=== PATIENT | male | born 1980 | race African-American/Black ===

== ENCOUNTER 2016-11-09 07:33 | Emergency (ER) | payer SELFPAY ==
[2016-11-09] MEDS ORDERED: KETOROLAC TROMETHAMINE 60 MG/2 ML SDV IM ONE (08:09)
--- NOTE | 2016-11-09 08:27 | ER Document Report ---
ED Neck/Back Problem - General Mode of Arrival: Ambulatory Information source: Patient TRAVEL OUTSIDE OF THE [place].S. IN LAST 30 DAYS: No - HPI Patient complains to provider of: Pain, Lower back Onset: Other - Friday Where: Home, Outdoors Onset: Gradual Timing: Worse Quality of pain: Achy, Cramping Severity: Moderate Pain Level: 4 Context: Bending, Lifting, Turning Recent injury: No Associated symptoms: Lower back pain, Other - Pain flank right. denies: Constipation, Incontinence, Motor loss, Numbness/tingling, Radiation to arm, Radiation to chest, Radiation to leg, Sensory loss, Unable to urinate, Upper back pain Exacerbated by: Movement of trunk Relieved by: Nothing Similar symptoms previously: Yes Recently seen / treated by doctor: No - General Chief Complaint: Back Injury Stated Complaint: BACK INJURY Time Seen by Provider: 11/09/16 07:47 Notes: -year-old male presents to ED for right low back and flank pain since Friday. He states he was doing yard work lifting and bending when the pain started. He states the pain is gotten progressively worse throughout the week. He states yesterday at work the pain was so bad that he was having a hard time completing his job. Denies any vertebral tenderness denies any loss of control of bowel bladder. Denies any incontinence of urine or stool. OKSANA GARZON) - Related Data Allergies/Adverse Reactions: No Known Allergies Allergy (Verified 11/09/16 07:36) Past Medical History - General Information source: Patient - Social History Smoking Status: Former Smoker Cigarette use (# per day): No Chew tobacco use (# tins/day): No Smoking Education Provided: No Frequency of alcohol use: Occasional Drug Abuse: None Occupation: dietary tech Lives with: Family Family History: Arthritis, COPD, CVA, DM, Hyperlipidemia, Hypertension, Malignancy, Thyroid Disfunction Patient has suicidal ideation: No Patient has homicidal ideation: No Pulmonary Medical History: Reports: None EENT Medical History: Reports: None Neurological Medical History: Reports: Other - Brain tumor benign Endocrine Medical History: Reports: None Renal/ Medical History: Reports: None Malignancy Medical History: Reports None GI Medical History: Reports: None Musculoskeltal Medical History: Reports Hx Musculoskeletal Trauma Skin Medical History: Reports Hx Cellulitis Psychiatric Medical History: Reports: None Traumatic Medical History: Reports: Hx Traumatic Brain Injury Past Surgical History: Reports: Hx Neurologic Surgery - brain tumor - Immunizations Immunizations up to date: Yes Hx Diphtheria, Pertussis, Tetanus Vaccination: Yes Review of Systems - Review of Systems Constitutional: No symptoms reported EENT: No symptoms reported Cardiovascular: No symptoms reported Respiratory: No symptoms reported Gastrointestinal: No symptoms reported Genitourinary: No symptoms reported Male Genitourinary: No symptoms reported Musculoskeletal: Back pain, Muscle pain, Muscle stiffness Skin: No symptoms reported Hematologic/Lymphatic: No symptoms reported Neurological/Psychological: No symptoms reported -: Yes All other systems reviewed and negative Physical Exam - Vital signs Interpretation: Normal - General General appearance: Appears well, Alert - HEENT Head: Normocephalic, Atraumatic Eyes: Normal Pupils: PERRL - Respiratory Respiratory status: No respiratory distress Chest status: Nontender Breath sounds: Normal Chest palpation: Normal - Cardiovascular Rhythm: Regular Heart sounds: Normal auscultation Murmur: No - Abdominal Inspection: Normal Distension: No distension Bowel sounds: Normal Tenderness: Nontender Organomegaly: No organomegaly - Back Back: Normal, Tender - Right flank and lower back pain, CVA tenderness. No: Deformity/step-off, Vertebra tenderness, Scars, Scoliosis, Wounds - Extremities General upper extremity: Normal inspection, Nontender, Normal color, Normal ROM , Normal temperature General lower extremity: Normal inspection, Nontender, Normal color, Normal ROM , Normal temperature, Normal weight bearing. No: Valentina's sign - Neurological Neuro grossly intact: Yes Cognition: Normal Orientation: AAOx4 [place] Coma Scale Eye Opening: Spontaneous [place] Coma Scale Verbal: Oriented Maria M Coma Scale Motor: Obeys Commands Maria M Coma Scale Total: 15 Speech: Normal Motor strength normal: LUE, RUE, LLE, RLE Sensory: Normal - Psychological Associated symptoms: Normal affect, Normal mood - Skin Skin Temperature: Warm Skin Moisture: Dry Skin Color: Normal Course - Re-evaluation Re-evalutation: 11/09/16 09:44 Treated with Toradol in the emergency room and discharged home with prescriptions for ibuprofen and Flexeril. Patient had no pulsatile masses in the abdomen no loss of sensation no loss of control of bowel bladder no signs of cauda equina. Patient discharged home with instructions on use of ice and heat and back exercises. Patient to follow-up with his primary doctor. ( OKSANA HAYNES) - Vital Signs Vital signs: Temp Pulse Resp BP Pulse Ox 98.4 F 80 16 142/92 H 98 11/09/16 09:13 11/09/16 09:13 11/09/16 09:13 11/09/16 09:13 11/09/16 09:13 Discharge - Discharge Clinical Impression: Low back pain Qualifiers: Chronicity: acute Back pain laterality: right Sciatica presence: without sciatica Qualified Code(s): M54.5 - Low back pain Condition: Stable Disposition: HOME, SELF-CARE Additional Instructions: LOW BACK PAIN: Three out of every four people will have an episode of disabling back pain during their lifetime. Most commonly the pain is due to straining of the muscles and ligaments in the low back. Usual treatment includes: (1) Rest on a firm surface. Avoid lying on your stomach. (2) Ice pack the painful area. After a few days, gentle heat may be used intermittently to relax the area, or ice packs can be continued. (3) Medication may be needed -- muscle relaxers and antiinflammatory medicines are commonly used. (4) As the back improves, exercises are prescribed to strengthen the back and abdominal muscles. Your doctor will advise you on the proper care for your back at each stage in your recovery. You may be better in a few days -- or healing may take several weeks. If new symptoms of a "herniated disc" (radiation of pain, numbness, or tingling down the back of the leg or weakness in the leg) occur, you should be re-examined. Further testing may be necessary. MUSCLE RELAXERS: Muscle relaxing medications are usually prescribed for acute muscle spasm or injury to the neck and back. They are often combined with antiinflammatory pain medication for increased relief. You may stop the muscle relaxer when the pain and stiffness have improved. Start the medication again if spasms recur. Muscle relaxers may cause drowsiness, especially with the first dose. Do not operate machinery or drive while under the effects of the medication. Most muscle relaxers last up to 24 hours. Do not combine the medication with alcohol. ICE PACKS: Apply ice packs frequently against the painful area. Many different schedules are recommended, such as "20 minutes on, 20 minutes off" or "one hour ice, two hours rest." If you need to work, you may need to go longer between ice treatments. You should plan to have the area ice packed AT LEAST one fourth of the time. The ice should be applied over the wrap, tape, or splint, or over a layer of cloth -- not directly against the skin. Some ice bags have a built-in cloth and can be put directly on the skin. WARM PACKS: After approximately two days, apply gentle heat (such as a heating pad or hot water bottle) for about 20 to 30 minutes about every two hours -- at least four times daily. Warmth and elevation will help you make a more rapid recovery , and will ease the pain considerably. Do not use HOT heat, and never apply heat for longer than 30 minutes. The continuous heat can invisibly damage skin and muscles -- even when no burn is seen on the surface. Damaged muscles can make you MORE sore. Toradol Injection You have been given an injection of ketorolac tromethamine (Toradol). This is an excellent, safe drug for pain control. It also has potent antiinflammatory action. You should have significant pain relief within about one hour. Toradol is not addicting and is non-sedating. It does not interfere with driving or work. Call or return if you develop itching, hives, shortness of breath, or rash. FOLLOW-UP CARE: If you have been referred to a physician for follow-up care, call the physician s office for an appointment as you were instructed or within the next two days. If you experience worsening or a significant change in your symptoms, notify the physician immediately or return to the Emergency Department at any time for re-evaluation. Prescriptions: Ibuprofen 800 mg PO Q8HP PRN #20 tablet PRN Reason: Cyclobenzaprine HCl [Flexeril 10 mg Tablet] 10 mg PO TIDP PRN #15 tab PRN Reason: Forms: Return to Work
[2016-11-09 09:03] LABS: APPEARANCE,URINE CLEAR; BILIRUBIN,URINE NEGATIVE (NEGATIVE); GLUCOSE, URINE NEGATIVE (NEGATIVE); KETONES,URINE NEGATIVE (NEGATIVE); LEUKOCYTE ESTERASE,URINE NEGATIVE (NEGATIVE); NITRITE,URINE NEGATIVE (NEGATIVE); PROTEIN,URINE NEGATIVE (NEGATIVE); URINE SPECIFIC GRAVITY 1.019; UROBILINOGEN,URINE NEGATIVE mg/dL (<2.0)
[2016-11-09 09:05] LABS: WBC,URINE RARE /HPF
[2016-11-09 09:06] LABS: BACTERIA,URINE TRACE /HPF
[2016-11-09 09:17] VITALS: BP 142/92
== END 2016-11-09 09:13 | disposition home or self-care (01) ==
LOC: ER 07:33
DX: S39.92XA Unspecified injury of lower back, initial encounter (principal); M54.5 Low back pain; R10.9 Unspecified abdominal pain; Z87.891 Personal history of nicotine dependence; X58.XXXA Exposure to other specified factors, initial encounter
CPT/HCPCS: 99283; 96372; 81001; J1885

== ENCOUNTER 2019-12-14 09:44 | Emergency (ER) | payer SELFPAY ==
--- NOTE | 2019-12-14 11:39 | ER Document Report ---
ED Medical Screen (RME) - General Chief Complaint: Shortness Of Breath Stated Complaint: RASH/SHORTNESS OF BREATH Notes: Patient is a 39-year-old male who presents to the emergency department with 2 complaints. Patient states that he started out with a rash about a week and a half ago. States that he used sgeh-oom-zviuvpq remedies such as oatmeal bath and creams to help with the rash. States that it is a little bit better, but it still itches. Patient states that he has poison celeste in the backyard, but does not do yard work. He states that he does not know if he came in contact with it. 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 Patient does not have any recorded medical history, but he has not been diagnosed with anything. When asked if the patient wanted to be tested for COVID, he states that he does not know quite yet. He will make his decision towards the end of his visit here in the emergency department. Exam: Erythema noted to abdomen. I have greeted and performed a rapid initial assessment of this patient. A comprehensive ED assessment and evaluation of the patient, analysis of test results and completion of medical decision making process will be conducted by an additional ED providers. TRAVEL OUTSIDE OF THE [place] IN LAST 30 DAYS: No - Related Data Allergies/Adverse Reactions: No Known Allergies Allergy (Verified 11/09/16 07:36) Past Medical History - Social History Chew tobacco use (# tins/day): No Frequency of alcohol use: Occasional Drug Abuse: Marijuana Renal/ Medical History: Denies: Hx Peritoneal Dialysis Musculoskeltal Medical History: Reports Hx Musculoskeletal Trauma Skin Medical History: Reports Hx Cellulitis Traumatic Medical History: Reports: Hx Traumatic Brain Injury Past Surgical History: Reports: Hx Neurologic Surgery - brain tumor - Immunizations Immunizations up to date: Yes Hx Diphtheria, Pertussis, Tetanus Vaccination: Yes Physical Exam - Vital signs Vitals: Temp Pulse Resp BP Pulse Ox 99.3 F 102 H 20 186/98 H 97 12/14/19 10:04 12/14/19 10:12/14/19 10:12/14/19 10:12/14/19 10:04 Course - Vital Signs Vital signs: Temp Pulse Resp BP Pulse Ox 99.3 F 102 H 20 186/98 H 97 12/14/19 11:25 12/14/19 10:04 12/14/19 10:04 12/14/19 10:04 12/14/19 10:04
[2019-12-14 12:07] LABS: ABSOLUTE EOSINOPHILS # (AUTO) 0.1 10^3/uL (0.0-0.6); ABSOLUTE LYMPHOCYTES (AUTO) 1.2 10^3/uL (0.5-4.7); ABSOLUTE MONOCYTES (AUTO) 0.6 10^3/uL (0.1-1.4); BASOPHILS % (AUTO) 0.8 % (0-2); EOSINOPHILS % (AUTO) 2.6 % (0-6); HEMATOCRIT 44.6 % (37.9-51.0); LYMPHOCYTES % (AUTO) 24.7 % (13-45); MEAN CORPUSCULAR HEMOGLOBIN 30.7 pg (27.0-33.4); MEAN CORPUSCULAR HGB CONC 33.7 g/dL (32.0-36.0); MEAN CORPUSCULAR VOLUME 91 fl (80-97); MONOCYTES % (AUTO) 11.3 % (3-13); PLATELET COUNT 149 10^3/uL (150-450); RED BLOOD COUNT 4.89 10^6/uL (4.35-5.55); SEGMENTED NEUTROPHILS % (AUTO) 60.6 % (42-78); TOTAL CELLS COUNTED % (AUTO) 100 %
[2019-12-14 12:24] LABS: ALBUMIN 4.7 g/dL (3.5-5.0); ALKALINE PHOSPHATASE 101 U/L (38-126); ANION GAP 9 (5-19); ASPARTATE AMINO TRANSFERASE 123 U/L (17-59); BILIRUBIN,DIRECT 0.1 mg/dL (0.0-0.4); BILIRUBIN,TOTAL 1.7 mg/dL (0.2-1.3); BLOOD UREA NITROGEN 9 mg/dL (7-20); CALCIUM 9.4 mg/dL (8.4-10.2); CARBON DIOXIDE 28 mmol/L (22-30); CHLORIDE 103 mmol/L (98-107); GLUCOSE 117 mg/dL (75-110); POTASSIUM 4.1 mmol/L (3.6-5.0); TOTAL PROTEIN 8.3 g/dL (6.3-8.2)
--- NOTE | 2019-12-14 12:28 | RADIOLOGY REPORT (SQ) ---
EXAM DESCRIPTION: CHEST SINGLE VIEW IMAGES COMPLETED DATE/TIME: 12/14/2019 12:07 pm REASON FOR STUDY: shortness of breath COMPARISON: None. EXAM PARAMETERS: NUMBER OF VIEWS: One view. TECHNIQUE: Single frontal radiographic view of the chest acquired. RADIATION DOSE: NA LIMITATIONS: None. FINDINGS: LUNGS AND PLEURA: No opacities, masses or pneumothorax. No pleural effusion. MEDIASTINUM AND HILAR STRUCTURES: No masses. Contour normal. HEART AND VASCULAR STRUCTURES: Heart normal in size. Normal vasculature. BONES: No acute findings. HARDWARE: None in the chest. OTHER: No other significant finding. IMPRESSION: NO ACUTE RADIOGRAPHIC FINDING IN THE CHEST. TECHNICAL DOCUMENTATION: JOB ID: [id number] 2010 [employer]- All Rights Reserved Reading location - IP/workstation name: [email or web address]
--- NOTE | 2019-12-14 13:33 | ER Document Report ---
Entered by RUFINA POTTER SCRIBE 12/14/19 1202 Acting as scribe for:ДМИТРИЙ TEJADA MD ED Respiratory Problem - General Chief Complaint: Shortness Of Breath Stated Complaint: RASH/SHORTNESS OF BREATH Time Seen by Provider: 12/14/19 11:44 Information source: Patient Notes: This 39-year-old male patient presents to the emergency department today with complaints of a two-week history of a rash across his trunk and bilateral upper extremities. Patient states he is a poison celeste in the past and it looks similar to this. Patient did not come into contact with poison celeste to his knowledge. Patient also mentions that he has had shortness of breath around the last 2 weeks as well and he noticed that it only seems to happen when he stands up . Patient states he has been taking Benadryl for the rash and he thinks it might be dehydrating him. TRAVEL OUTSIDE OF THE [place] IN LAST 30 DAYS: No - Related Data Allergies/Adverse Reactions: No Known Allergies Allergy (Verified 11/09/16 07:36) Past Medical History - General Information source: Patient - Social History Smoking Status: Current Every Day Smoker Cigarette use (# per day): Yes Chew tobacco use (# tins/day): No Smoking Education Provided: No Frequency of alcohol use: Social Drug Abuse: Marijuana Lives with: Family Family History: Arthritis, COPD, CVA, DM, Hyperlipidemia, Hypertension, Malignancy, Thyroid Disfunction Patient has homicidal ideation: No Musculoskeletal Medical History: Reports Hx Musculoskeletal Trauma Skin Medical History: Reports Hx Cellulitis Traumatic Medical History: Reports: Hx Traumatic Brain Injury Past Surgical History: Reports: Hx Neurologic Surgery - brain tumor - Immunizations Immunizations up to date: Yes Hx Diphtheria, Pertussis, Tetanus Vaccination: Yes Review of Systems - Review of Systems Constitutional: No symptoms reported EENT: No symptoms reported Cardiovascular: No symptoms reported Respiratory: See HPI, Short of breath Gastrointestinal: No symptoms reported Genitourinary: No symptoms reported Male Genitourinary: No symptoms reported Musculoskeletal: No symptoms reported Skin: See HPI, Rash Hematologic/Lymphatic: No symptoms reported Neurological/Psychological: No symptoms reported -: Yes All other systems reviewed and negative Physical Exam - Vital signs Vitals: Temp Pulse Resp BP Pulse Ox 99.3 F 102 H 20 186/98 H 97 12/14/19 10:04 12/14/19 10:04 12/14/19 10:04 12/14/19 10:04 12/14/19 10:04 - Notes Notes: Physical Exam: General: Alert, appears well. HEENT: Normocephalic. Atraumatic. PERRL. Extraocular movements intact. Oropharynx clear. Neck: Supple. Non-tender. Respiratory: No respiratory distress. Clear and equal breath sounds bilaterally. Cardiovascular: Regular rate and rhythm. Abdominal: Normal Inspection. Non-tender. No distension. Normal Bowel Sounds. Back: No gross abnormalities. Extremities: Moves all four extremities. Upper extremities: Normal inspection. Normal ROM. Lower extremities: Normal inspection. No edema. Normal ROM. Neurological: Normal cognition. AAOx4. Normal speech. Psychological: Normal affect. Normal Mood. Skin: Rash across abdomen and bilateral upper extremities that is mostly very dr y and scaly, there are a few places where vesicles have not yet crusted over consistent with healing poison celeste. Course - Vital Signs Vital signs: Temp Pulse Resp BP Pulse Ox 99 F 92 18 170/88 H 99 12/14/19 13:46 12/14/19 13:46 12/14/19 13:46 12/14/19 13:46 12/14/19 13:46 - Laboratory Result Diagrams: 12/14/19 11:50 12/14/19 11:50 Laboratory results interpreted by me: 12/14/19 12/14/19 11:50 11:50 Plt Count 149 L Glucose 117 H Total Bilirubin 1.7 H AST 123 H ALT 95 H Total Protein 8.3 H - Diagnostic Test Radiology reviewed: Image reviewed, Reports reviewed - Chest x-ray is normal. Discharge - Discharge Clinical Impression: Shortness of breath, Dermatitis, Encounter for laboratory testing for COVID-19 virus High blood pressure Qualifiers: Hypertension type: unspecified Qualified Code(s): I10 - Essential (primary) hypertension Condition: Stable Disposition: HOME, SELF-CARE Instructions: COVID-19 Guidance for Persons Under Investigation Additional Instructions: Dyspnea, Nonspecific You were evaluated for shortness of breath, or dyspnea. Dyspnea has many causes, and some are more serious than others. Sometimes it's impossible to diagnose the cause of dyspnea with the tests that are available on an emergency basis. Based on our evaluation today, you do not need hospitalization now. We found no evidence of pneumonia, collapsed lung, blood clots in the lung, tumors, or heart failure. Causes of non-specific dyspnea can include asthma or bronchospasm, hyperventilation, emotional distress, heart disease, emphysema, fibrosis of the lung, and stiffness of the chest wall. In healthy individuals with a single episode, it's sometimes reasonable to do nothing but wait to see if the problem occurs again. Additional tests used to evaluate dyspnea can include cardiac stress testing, echocardiography, pulmonary function testing, CAT scan of the chest, bronchoscopy or pulmonary biopsy. Return if shortness of breath persists or worsens, or if you develop chest pain, fever, cough, confusion, or fainting. The skin rash you have is most likely due to poison celeste and has almost cleared up. Try taking jczt-wss-[id number] Pepcid 20mg every 4-6 hours for itching. It would not make you drowsy like Benadryl. You may also try Benadryl cream on the rash when it is itching. Mpdh-qve-yjhnrfc hydrocortisone cream on the rash may also help. There was no clear explanation for your feelings of shortness of breath. Your chest x-ray was normal. Your blood pressure was high today. You should check your pressure at least twice a day for the next several days, and if it continues to run high then you will need to be treated. You were tested for the COVID-19 virus today. You should self isolate until you get the test results sometime in the next 3 to 4 days. Follow-up with a local primary care provider if your rash does not improve, your blood pressure does not come down to normal, or if your shortness of breath gets worse. RETURN TO THE EMERGENCY ROOM IF ANY NEW OR WORSENING SYMPTOMS. I personally performed the services described in the documentation, reviewed and edited the documentation which was dictated to the scribe in my presence, and it accurately records my words and actions.
[2019-12-14 13:48] VITALS: BP 170/88
== END 2019-12-14 13:40 | disposition home or self-care (01) ==
LOC: ER 09:44
DX: Z20.828 Contact with and (suspected) exposure to other viral communicable diseases (principal); L30.9 Dermatitis, unspecified; I10 Essential (primary) hypertension; R06.02 Shortness of breath; R21 Rash and other nonspecific skin eruption; Z79.899 Other long term (current) drug therapy; F17.210 Nicotine dependence, cigarettes, uncomplicated
CPT/HCPCS: 99285; 36415; 85025; 87635; 80053; 83880; 71045; C9803

== ENCOUNTER 2020-03-31 18:24 | Emergency (ER) | payer MEDICAID ==
--- NOTE | 2020-03-31 19:48 | ER Document Report ---
ED Medical Screen (RME) - General Chief Complaint: Palpitations Stated Complaint: ABNORMAL LABS Time Seen by Provider: 03/31/20 19:35 Primary Care Provider: TINA BAR [Primary Care Provider] - Follow up as needed Mode of Arrival: Wheelchair Information source: Patient Notes: Male presented to ED for shortness of breath and palpitations. He has been seen and [facility] since January for possible autoimmune disease he is also been short of breath fatigue since January with a rash since November. Today he went to [facility] and he was more short of breath. They did a EKG and labs D-dimer was [address] [facility] called her and got emergently to the emergency room. His apical pulse was 128 in triage. I did call the charge nurse and asked her to get him a room. I have moved him to room 11. I have ordered a CTA blood work chest x-ray and EKG. I have given report to the charge nurse to please get him seen immediately. I have greeted and performed a rapid initial assessment of this patient. A comprehensive ED assessment and evaluation of the patient, analysis of test results and completion of medical decision making process will be conducted by an additional ED providers. TRAVEL OUTSIDE OF THE [place] IN LAST 30 DAYS: No - Related Data Allergies/Adverse Reactions: No Known Allergies Allergy (Verified 11/09/16 07:36) Past Medical History Renal/ Medical History: Denies: Hx Peritoneal Dialysis Musculoskeltal Medical History: Reports Hx Musculoskeletal Trauma Skin Medical History: Reports Hx Cellulitis Traumatic Medical History: Reports: Hx Traumatic Brain Injury Past Surgical History: Reports: Hx Neurologic Surgery - brain tumor - Immunizations Immunizations up to date: Yes Hx Diphtheria, Pertussis, Tetanus Vaccination: Yes Physical Exam - Vital signs Vitals: Temp Pulse Resp BP Pulse Ox 98.6 F 130 H 16 136/81 H 99 03/31/20 18:54 03/31/20 18:54 03/31/20 18:54 03/31/20 18:54 03/31/20 18:54 Course - Vital Signs Vital signs: Temp Pulse Resp BP Pulse Ox 98.6 F 130 H 16 136/81 H 99 03/31/20 18:54 03/31/20 18:54 03/31/20 18:54 03/31/20 18:54 03/31/20 18:54 Doctor's Discharge - Discharge Referrals: TINA BAR [Primary Care Provider] - Follow up as needed
--- NOTE | 2020-03-31 20:34 | RADIOLOGY REPORT (SQ) ---
EXAM DESCRIPTION: XR CHEST 1 VIEW COMPLETED DATE/TME: 03/31/2020 20:00 CLINICAL HISTORY: 39 years, Male, States D-dimer was 1160 at [facility] COMPARISON: Chest x-ray 12/14/2019 TECHNIQUE: Upright portable chest x-ray FINDINGS: Cardiomediastinal silhouette is not enlarged. Mild hyperinflation. No acute lung pleural bone abnormalities. IMPRESSION: No acute findings in the chest.
[2020-03-31 20:46] LABS: ABSOLUTE LYMPHOCYTES (AUTO) 0.7 10^3/uL (0.5-4.7); ABSOLUTE MONOCYTES (AUTO) 0.4 10^3/uL (0.1-1.4); ABSOLUTE NEUT (AUTO) 5.8 10^3/uL (1.7-8.2); BASOPHILS % (AUTO) 0.6 % (0-2); EOSINOPHILS % (AUTO) 0.1 % (0-6); HEMATOCRIT 38.7 % (37.9-51.0); HEMOGLOBIN 12.9 g/dL (13.5-17.0); LYMPHOCYTES % (AUTO) 9.5 % (13-45); MEAN CORPUSCULAR HEMOGLOBIN 30.2 pg (27.0-33.4); MEAN CORPUSCULAR HGB CONC 33.2 g/dL (32.0-36.0); MEAN CORPUSCULAR VOLUME 91 fl (80-97); MONOCYTES % (AUTO) 6.1 % (3-13); PLATELET COUNT 194 10^3/uL (150-450); RED BLOOD COUNT 4.26 10^6/uL (4.35-5.55); RED CELL DISTRIBUTION WIDTH 15.4 % (11.5-14.0); SEGMENTED NEUTROPHILS % (AUTO) 83.7 % (42-78); TOTAL CELLS COUNTED % (AUTO) 100 %
[2020-03-31 21:00] LABS: INTERNATIONAL RATION (INR) 0.87
[2020-03-31 21:01] LABS: ALBUMIN 3.6 g/dL (3.5-5.0); ALKALINE PHOSPHATASE 78 U/L (38-126); ANION GAP 11 (5-19); ASPARTATE AMINO TRANSFERASE 78 U/L (17-59); BILIRUBIN,DIRECT 0.2 mg/dL (0.0-0.4); BILIRUBIN,TOTAL 0.9 mg/dL (0.2-1.3); BLOOD UREA NITROGEN 15 mg/dL (7-20); CALCIUM 9.3 mg/dL (8.4-10.2); CARBON DIOXIDE 24 mmol/L (22-30); CHLORIDE 101 mmol/L (98-107); CREATINE KINASE 149 U/L (55-170); GLUCOSE 212 mg/dL (75-110); POTASSIUM 4.6 mmol/L (3.6-5.0); TOTAL PROTEIN 6.9 g/dL (6.3-8.2)
--- NOTE | 2020-03-31 21:16 | RADIOLOGY REPORT (SQ) ---
EXAM DESCRIPTION: CTA CHEST CLINICAL HISTORY: 39 years Male; States D-dimer was 1160 at [facility] TECHNIQUE: CT angiogram of the chest using intravenous contrast.. MIP reconstructions were performed. All CT scans at this facility use dose modulation, iterative reconstruction, and/or weight based dosing when appropriate to reduce radiation dose to as low as reasonably achievable. COMPARISON: None. FINDINGS: Chest: Vascular: Exam is nondiagnostic for pulmonary artery embolization related to poor contrast opacification of the pulmonary arteries. The main, right and left pulmonary arteries are grossly normal. Distal to this the vessels are completely unopacified. Thoracic aorta is of normal caliber. No aneurysm. No dissection. Lungs: Lungs are clear. No pneumonia or edema. No pneumothorax or pleural effusion. No pulmonary nodules or masses. Mediastinum: Heart size is within normal limits. No pericardial abnormality. The airway is patent. No mediastinal or hilar lymphadenopathy. Esophagus appears normal. Bones and soft tissues: Osseous structures are unremarkable. There appears to be lymphadenopathy in the axilla and there may be vascular clips or calcifications in the left axilla. This is incompletely imaged. Upper Abdomen: Hepatomegaly with fatty infiltration of the liver. There are calcifications or clips in the region of the gallbladder fossa. IMPRESSION: 1. Nondiagnostic exam for pulmonary artery embolization secondary to lack of contrast enhancement of the pulmonary arteries. 2. Possible axillary lymphadenopathy. This is incompletely imaged. 3. Fatty infiltration of the liver. 4. No acute process in the chest.
[2020-03-31] MEDS ORDERED: NORMAL SALINE 1000 ML 1,000 ML IV ONE (21:19)
--- NOTE | 2020-03-31 21:21 | ER Document Report ---
ED General - General Chief Complaint: Palpitations Stated Complaint: ABNORMAL LABS Time Seen by Provider: 03/31/20 19:35 Primary Care Provider: TINA BAR [NO LOCAL MD] - Follow up as needed Mode of Arrival: Wheelchair TRAVEL OUTSIDE OF THE [place] IN LAST 30 DAYS: No - HPI Context: This is a 39-year-old male who presents to the emergency department complaining of shortness of breath and rapid heart rate. Patient has been having trouble with these symptoms for over 3 months and has been in the process of being evaluated for a possible autoimmune disease at [facility] for approximately 1 month. Patient was seen yesterday at [facility] and had lab work done. By the time they got back into [place] they received a phone call from their physician at [facility] stating that his D-dimer was 9160 and was told to go immediately to the emergency room to be evaluated for a pulmonary embolus. Patient denies history of COVID-19 infection, known exposure to persons positive for COVID-19 infection or persons under investigation for COVID-19 infection. Patient denies loss of sense of smell or taste. Patient states his symptoms are worse with activity and rest and only slightly alleviates his symptoms. Patient is a non-smoker. Associated symptoms: Other - See HPI Exacerbated by: Other - See HPI Relieved by: Other - See HPI Similar symptoms previously: No Recently seen / treated by doctor: Yes - See HPI - Related Data Allergies/Adverse Reactions: No Known Allergies Allergy (Verified 11/09/16 07:36) Past Medical History - General Information source: Patient - Social History Smoking Status: Former Smoker Frequency of alcohol use: None Drug Abuse: None Family History: Arthritis, COPD, CVA, DM, Hyperlipidemia, Hypertension, Malignancy, Thyroid Disfunction Patient has homicidal ideation: No Renal/ Medical History: Denies: Hx Peritoneal Dialysis Musculoskeletal Medical History: Reports Hx Musculoskeletal Trauma Skin Medical History: Reports Hx Cellulitis Traumatic Medical History: Reports: Hx Traumatic Brain Injury Past Surgical History: Reports: Hx Neurologic Surgery - brain tumor - Immunizations Immunizations up to date: Yes Hx Diphtheria, Pertussis, Tetanus Vaccination: Yes Review of Systems - Review of Systems Constitutional: denies: Fever EENT: No symptoms reported Cardiovascular: Palpitations. denies: Chest pain Respiratory: Short of breath Gastrointestinal: No symptoms reported Genitourinary: No symptoms reported Male Genitourinary: No symptoms reported Musculoskeletal: No symptoms reported Skin: No symptoms reported Hematologic/Lymphatic: No symptoms reported Neurological/Psychological: No symptoms reported -: Yes All other systems reviewed and negative Physical Exam - Vital signs Vitals: Temp Pulse Resp BP Pulse Ox 98.6 F 130 H 16 136/81 H 99 03/31/20 18:54 03/31/20 18:54 03/31/20 18:54 03/31/20 18:54 03/31/20 18:54 - Notes Notes: CONSTITUTIONAL [Vital signs reviewed, Patient appears comfortable, Alert and oriented X 3, HEAD [Atraumatic, Normocephalic.] EYES [Eyes are normal to inspection, No discharge from eyes, Extraocular muscles intact, Sclera are normal, Conjunctiva are normal.] ENT [External ears normal to inspection, Nose examination normal, Mouth normal to inspection.] NECK [Normal ROM, No jugular venous distention, No meningeal signs, ] RESPIRATORY CHEST [Chest is nontender, Breath sounds normal, No respiratory distress.] CARDIOVASCULAR [Tachycardia, No murmurs, Normal S1 S2, No rub, No gallop.] ABDOMEN [Abdomen is nontender, No pulsatile masses, No other masses, Bowel sounds normal, No distension, No peritoneal signs, No hernias.] BACK [There is no CVA Tenderness, There is no tenderness to palpation, Normal inspection.] UPPER EXTREMITY [Inspection normal, No cyanosis, No clubbing, No edema, LOWER EXTREMITY [Inspection normal, No cyanosis, No clubbing, No edema, No calf tenderness, NEURO [No focal motor deficits, No focal sensory deficits, Speech normal.] SKIN [Skin is warm, Skin is dry, Skin is normal color.] PSYCHIATRIC [Normal affect. ] Course - Re-evaluation Re-evalutation: 04/01/20 07:05 Results of ED MSE discussed with patient and patient's . Etiology of the patient's symptoms remains unknown at this point. The VQ scan was read as being very low probability for pulmonary embolism. Patient was instructed to follow- up with his care provider at [facility] on 04/03/2020. All questions were answered prior to discharge. Emergency signs and symptoms, reasons to return to the emergency department discussed with patient patient's . - Vital Signs Vital signs: Temp Pulse Resp BP Pulse Ox 98.6 F 130 H 24 H 155/89 H 95 03/31/20 18:54 03/31/20 18:54 04/01/20 05:31 04/01/20 05:31 04/01/20 05:31 - Laboratory Result Diagrams: 03/31/20 20:18 03/31/20 20:18 Laboratory results interpreted by me: 03/31/20 03/31/20 20:18 20:18 RBC 4.26 L Hgb 12.9 L RDW 15.4 H Lymph % (Auto) 9.5 L Seg Neutrophils % 83.7 H Sodium 135.8 L Glucose 212 H AST 78 H ALT 56 H - EKG Interpretation by Me Additional EKG results interpreted by me: 04/01/20 06:21 EKG obtained on 03/31/2020 at 2000 hrs. was interpreted by this MD. Findings: Sinus tachycardia, rate 128, normal axis, RI interval appears to be within normal limits, P waves proceed QRS complexes, a solitary PVC is present, otherwise QRS complex appears narrow, QTC is 444, there are no obvious patterns of ST segment elevation, depression or reciprocal changes present to suggest acute myocardial ischemia or infarction, QTC is 444. There is no prior EKG sheryl ilable for comparison. Impression: Sinus tachycardia with nonspecific ST segments. Discharge - Discharge Clinical Impression: Tachycardia, Elevated d-dimer Dyspnea Qualifiers: Dyspnea type: unspecified Qualified Code(s): R06.00 - Dyspnea, unspecified Condition: Stable Disposition: HOME, SELF-CARE Additional Instructions: Return to the Emergency Department without delay if any worse. Be certain to follow-up with your doctor at [facility] on 04/03/2020. HOME CARE INSTRUCTIONS & INFORMATION: Thank you for choosing us for your medical needs. We hope you're satisfied with the care you received. After you leave, you must properly care for your problem and, at the same time, observe its progress. Any condition can change. Some illnesses can change rapidly over hours or days. If your condition worsens, return to the Emergency Department or see your physician promptly. ABOUT YOUR X-RAYS AND EKG'S: If you had an EKG or X-rays taken, they have been read by the Emergency Physician. The X-rays and EKG's will also be read by a Radiologist or Maintenance Foreman within 24 hours. If discrepancies are noted, you will be notified by telephone. Please be certain the ED has a correct telephone number & address where you can be reached. Also, realize that some fractures or abnormalities do not show up on initial X-rays. If your symptoms continue, see your physician. ABOUT YOUR LABORATORY TEST: If you had laboratory tests, the results have been reviewed by the Emergency Physician. Some test results (for example cultures) may not be available for several days. You will be contacted if any test result shows you need additional treatment. Please be certain the ED has a correct telephone number and address where you can be reached. ABOUT YOUR MEDICATIONS: You will receive instructions on how to take your medicine on the prescription label you receive. Additional information may be provided by the Pharmacy. If you have questions afterwards, call the ED for clarification or further instructions. Some prescribed medications may cause drowsiness. Do not perform tasks such as driving a car or operating machinery without consulting your Pharmacist. If you feel you need a refill of pain medication, your condition will need re-evaluation. Please do not call for a refill of any medication. ABOUT YOUR SIGNATURE: Signature of this document acknowledges to followin. Understanding that you received emergency treatment and that you may be released before al medical problems are known or treated. Please be certain the ED has a correct phone number & address where you can be reached. 2. Acknowledgement that you will arrange for follow-up care as recommended. 3. Authorization for the Emergency Physician to provide information to your follow-up Physician in order to maximize your care. AT ANY TIME, IF YOUR SYMPTOMS CHANGE SIGNIFICANTLY OR WORSEN OR YOU DEVELOP NEW SYMPTOMS, RETURN TO THE EMERGENCY DEPARTMENT IMMEDIATELY FOR RE-EVALUATION. OUR GOAL IS TO PROVIDE EXCELLENT MEDICAL CARE! WE HOPE THAT WE HAVE MET YOUR EXPECTATIONS DURING YOUR EMERGENCY DEPARTMENT VISIT AND THAT YOU FEEL YOU HAVE RECEIVED EXCELLENT CARE! Referrals: TINA BAR [NO LOCAL MD] - Follow up as needed
[2020-03-31 21:23] LABS: PARTIAL THROMBOPLASTIN TIME 25.9 SEC (23.5-35.8)
--- NOTE | 2020-04-01 06:58 | RADIOLOGY REPORT (SQ) ---
EXAM: Nuclear medicine perfusion lung scan CLINICAL DATA: 39 years Male dyspnea, +d dimer, ct scan inconclusive TECHNICAL DATA: 5 mCi of 99m Tc MAA is administered intravenously. Various images of the lungs are performed. FINDINGS: Comparison is from a chest x-ray performed on 03/31/2020 and CTA chest performed on 03/31/2020. The perfusion images reveal homogeneous distribution throughout the lungs without evidence of segmental or subsegmental perfusion defects. IMPRESSION: Normal perfusion lung scan. The scan is very low probability for pulmonary embolism.
[2020-04-01 07:10] VITALS: BP 151/98
--- NOTE | 2020-04-01 09:48 | EKG REPORT ---
SEVERITY:- BORDERLINE ECG - SINUS TACHYCARDIA VENTRICULAR PREMATURE COMPLEX PROBABLE LEFT ATRIAL ABNORMALITY : Confirmed by: Govind Gonzalez 01-Apr-2020 09:48:36
== END 2020-04-01 07:30 | disposition home or self-care (01) ==
LOC: ER 18:24
DX: R06.02 Shortness of breath (principal); R00.0 Tachycardia, unspecified; R79.89 Other specified abnormal findings of blood chemistry; R00.2 Palpitations; Z87.891 Personal history of nicotine dependence; Z82.5 Family history of asthma and other chronic lower respiratory diseases
CPT/HCPCS: 93005; 99285; 96360; 36415; 82550; 83735; 84443; 85025; 85610; 85730; 80053; 84484; 71045; 78580; 71275; 93010; A9540; J7030; Q9969